=== PATIENT | female | born 1960 | race Caucasian/White ===

== ENCOUNTER → 2016-11-03 | Outpatient (CLI) | payer MEDICAID | LOC: FIMAGING 10:44 | DX: Z12.31 Encounter for screening mammogram for malignant neoplasm of breast (principal) | CPT/HCPCS: G0202 ==

== ENCOUNTER 2017-03-03 17:57 | Emergency (ER) | payer MEDICAID ==
[2017-03-03 18:12] VITALS: RESP 16
--- NOTE | 2017-03-03 19:48 | EDPHY ---
H & P Stated Complaint: Low back pain, has asked for narcotics. Time Seen by Provider: 03/03/17 19:35 - Personal History Current Tetanus/Diphtheria Vaccine: Unsure Current Tetanus Diphtheria and Acellular Pertussis (TDAP): Unsure Tetanus Vaccine Date: 2009 - Medical/Surgical History Hx Asthma: No Hx Chronic Respiratory Disease: No Hx Diabetes: No Hx Cardiac Disease: No Hx Renal Disease: No Hx Cirrhosis: No Hx Alcoholism: No Hx HIV/AIDS: No Hx Splenectomy or Spleen Trauma: No Other PMH: anxiety, depression, bipolar. Hx hypothyroid, ADHD, PTSD, borderline , chronic pain, colitis, ovarian cysts - Social History Smoking Status: Former smoker Constitutional: Initial Vital Signs Temperature (C) 37.0 C 03/03/17 18:10 Heart Rate 79 03/03/17 18:10 Respiratory Rate 16 03/03/17 18:10 Blood Pressure 113/75 03/03/17 18:10 O2 Sat (%) 99 03/03/17 18:10 O2 Delivery Mode Room Air Allergies/Adverse Reactions: No Known Allergies Allergy (Verified 03/03/17 18:12) Home Medications: Medication Instructions Recorded Aspirin [Aspirin 81mg (*)] 81 mg PO DAILY 03/14/14 Divalproex ER [Depakote ER 500 MG 1,000 mg PO HS #2 tab 03/18/14 (*)] Levothyroxine [Synthroid 112 mcg 112 mcg PO DAILY06 04/10/15 (*)] Lisdexamfetamine Dimesylate 40 mg PO DAILY@08 04/10/15 [Vyvanse] Lurasidone HCl [Latuda] 40 mg PO DAILY@0800 04/10/15 Zolpidem Tartrate [Ambien 5MG (*)] 10 mg PO HS PRN #30 tab 04/13/15 Seroquel 05/01/16 methylPREDNISolone [Medrol Dose 1 each PO AD #1 ea 03/03/17 Tristen] oxyCODONE IR [Oxycodone Ir (*)] 5 - 10 mg PO Q6 PRN #20 tab 03/03/17 Medical Decision Making - Diagnostics Imaging Results: Imaging Impressions Lumbar Spine MRI 03/03/17 19:47 Impression: Degenerative changes which are most pronounced again at the L4-L5 and L5-S1 levels where there are small annular tears and disk bulging, perhaps marginally progressive at the L5-S1 level (where there is a right paracentral prolapsing component), compared to the previous study of 10/07/10. Findings were discussed with Cuauhtemoc Stone MD at 23:06, on 03/03/2017. Imaging: Discussed imaging studies w/ machine scallop cutter Radiologist ED Course/Re-evaluation: CHIEF COMPLAINT: Low back pain with right and left radiculopathy HISTORY OF PRESENT ILLNESS: The patient is a 56 y/o female with a history of sciatica complaining of low back pain and bilateral radiculopathy onset around 14:00 today, about 5.5 hours ago. Her pain radiates into her left and right gluteal regions and is associated with some tingling in her left lower leg. She reports she has never had radiating pain before and feels like her numbness is worse. Her symptoms are aggravated by lying down and moving her leg. She denies incontinence, saddle anesthesia, or fever. REVIEW OF SYSTEMS: A 10 point review of systems was performed and is negative with the exception of the elements mentioned in the history of present illness. PHYSICAL EXAM: HR, BP, O2 Sat, RR. Temp noted General Appearance: Alert, well hydrated, appropriate, anxious and appears uncomfortable. Head: Atraumatic without scalp tenderness or obvious injury Eyes: Pupils equal, round, reactive to light and accommodation, EOMI, no trauma , no injection. Ears: Clear bilaterally, no perforation, normal landmarks Nose: Atraumatic, no rhinorrhea, clear. Throat: There is no erythema or exudates, no lesions, normal tonsils, mucus membranes moist. Neck: Supple, non-tender, no lymphadenopathy. Respiratory: No retractions, no distress, no wheezes, and no accessory muscle use. Lungs are clear to auscultation bilaterally. Cardiovascular: Regular rate and rhythm, no murmurs, rubs, or gallops. Bilateral dorsalis pedis pulses intact. Good capillary refill all extremities. Gastrointestinal: Abdomen is soft, non-tender, non-distended, no masses, no rebound, no guarding, no peritoneal signs. Musculoskeletal: Normal active ROM of all extremities, atraumatic. Neurological: Alert, appropriate, and interactive. Nonfocal neuro exam. Skin: No rashes, good turgor, no nodules on palpation. PAST MEDICAL HISTORY: Sciatica PAST SURGICAL HISTORY: no back surgeries SOCIAL HISTORY: son at bedside DIAGNOSTICS/PROCEDURES/CRITICAL CARE TIME: MRI Lumbar Spine: lumbar disc herniation DIFFERENTIAL DIAGNOSIS: The differential diagnosis for the patient's back pain and radiculopathy included but was not limited to musculoskeletal pain, epidural abscess, herniated disk, spinal fracture, and intra-abdominal causes including urinary system. MEDICAL DECISION MAKING: This is a 56 y/o female with a history of left-sided sciatica who presents with a 5.5-hour history of new bilateral gluteal pain and worsening left lower leg paresthesias. She has significant difficulty moving or lifting her legs due to pain on exam. She is neurovascularly intact. Plan for lumbar MRI and symptom management. IV established. 1mg IV Ativan, 1mg IV Dilaudid, 30mg IV Toradol, 4mg IV Zofran, and 1L IV NS administered for symptoms. Reassessed patient and discussed work up. She has lumbar disc herniations on MRI. She will be discharged with Medrol, OxyIR, and referral to neurosurgery for follow up. Standard return precautions given. She is comfortable with this plan. - Data Points Medications Given: Discontinued Medications Dexamethasone (Decadron Injection) 10 mg IVP EDNOW ONE Stop: 03/03/17 20:07 Last Admin: 03/03/17 20:11 Dose: 10 mg Hydromorphone HCl (Dilaudid) 1 mg IVP EDNOW ONE Stop: 03/03/17 20:06 Last Admin: 03/03/17 20:14 Dose: 1 mg Ketorolac Tromethamine (Toradol) 30 mg IVP EDNOW ONE Stop: 03/03/17 20:06 Last Admin: 03/03/17 20:13 Dose: 30 mg Departure - Departure Disposition: Home, Routine, Self-Care Clinical Impression: Lumbar radiculopathy Disc herniation Qualifiers: Spinal region: lumbar Qualified Code(s): M51.26 - Other intervertebral disc displacement, lumbar region Condition: Good Instructions: Lumbar Disc Herniation (ED), Lumbar Radiculopathy (ED) Additional Instructions: Use Medrol as prescribed. Take OxyIR as prescribed when needed for severe pain. Follow up with back specialist, Dr. Smith, in the next week. Return for weakness or numbness of your legs, incontinence, genital numbness, or other worsening of condition. Referrals: Norbert Gifford MD [Primary Care Provider] - As per Instructions Ahsan Smith MD [Medical Doctor] - As per Instructions Prescriptions: methylPREDNISolone [Medrol Dose Tristen] 1 each PO AD #1 ea oxyCODONE IR [Oxycodone Ir (*)] 5 - 10 mg PO Q6 PRN #20 tab PRN Reason: Pain, Severe Report Scribed for: Cuauhtemoc Stone Report Scribed by: Corinna Franks Date of Report: 03/03/17 Time of Report: 19:49
[2017-03-03] MEDS ORDERED: HYDROmorphONE/DILAUDID 1 MG/ML SYR IVP ONE (20:05)
[2017-03-03] MEDS ORDERED: KETOROLAC 30 MG/1 ML SDV IVP ONE (20:05)
[2017-03-03] MEDS ORDERED: DEXAMETHASONE 10 MG/ML VIAL IVP ONE (20:06)
[2017-03-03] MEDS ORDERED: HYDROCOD/APAP 5/325 PREPACK#6 BTL TAKEHOME ONE (23:08)
[2017-03-03 23:58] VITALS: BP 97/69; PULSE 60; TEMP 98.8; O2SAT 96
== END 2017-03-03 23:58 | disposition home or self-care (01) ==
DX: M51.16 Intervertebral disc disorders with radiculopathy, lumbar region (principal); Z79.82 Long term (current) use of aspirin; Z87.891 Personal history of nicotine dependence
CPT/HCPCS: 96374; J1100; J1170; J1885

== ENCOUNTER 2017-07-19 12:10 | Emergency (ER) | payer MEDICAID ==
--- NOTE | 2017-07-19 13:17 | EDPHY ---
HPI/HX/ROS/PE/MDM Narrative: CHIEF COMPLAINT: Ambien overdose. HISTORY OF PRESENT ILLNESS: This patient is a 57 year old female with history of bipolar disorder presenting with lethargy and dizziness following an intentional Ambien overdose. She states she took 3-4 pills of 10mg Ambien this morning around 11: 30am. She denies taking any other prescription medications, over the counter medications including acetaminophen, or alcohol. She endorses prior suicide attempts. She denies having a current therapist. Reviewed M1 paperwork completed by [place] police department. Police responded to a welfare check after the patient told her daughter she was going to intentionally overdose on Ambien. Police discovered the patient unresponsive this morning around 11:30 next to an empty bottle, with a note. EMS reports they discovered one empty bottle and one with about 10 pills missing. HPI difficult to obtain due to patient's mental status. REVIEW OF SYSTEMS: Aside from elements discussed in the HPI, a comprehensive 10-point review of systems was reviewed and is negative. PAST MEDICAL HISTORY: 1. Bipolar disorder (Depanastasia, Serofelice) SOCIAL HISTORY: Single. Lives in [place]. Former smoker. VITAL SIGNS: Reviewed by me GENERAL: Somnolent, barely arousable. HEENT: Atraumatic. Eyes: Bilateral rotary nystagmus at rest. No icterus, no injection. Mouth: moist mucous membranes. No erythema or lesions. Neck: supple with no adenopathy. LUNGS: Clear to auscultation bilaterally, no wheezes, rhonchi or rales. CARDIAC: Regular rate and rhythm, no rubs, murmurs or gallops. ABDOMEN: Soft, nontender, nondistended, bowel sounds normal. BACK: No CVA tenderness. EXTREMITIES: No trauma. No edema. Range of motion is normal throughout. NEURO: Alert and oriented, grossly nonfocal. SKIN: Warm and dry, no rash. PSYCHIATRIC: Normal mentation, no agitation. Portions of this note were transcribed by a medical center representative. I personally performed a history, physical exam, medical decision making, and confirmed accuracy of information the transcribed note. (Claribel Escalera) ED Course: 57 y/o female presents following an intentional Ambien overdose this morning prior to discovery at 11:30am. On my exam, she is somnolent and barely arousable with bilateral rotary nystagmus. 13:34 Consulted with poison control. 14:13 Consulted with poison control. Ambien half life is 3-4 hours. Plan for medical clearance in the emergency department rather than admission prior to psychiatric evaluation. 14:57 Reassessed patient. She is much more coherent. She remembers taking several Ambien pills this morning in addition to her Seroquel and Depakote. Plan for UA. Patient's care was assumed by Dr. Jeison Jc at 3:30 p.m.. We are awaiting urine tox screen and then evaluation by Mental Health. (Claribel Escalera) I took over care of this patient at 3:30 p.m.. This patient is on an M1 hold for overdose on Ambien. She is awaiting evaluation by Behavioral Health. 9:30 p.m., the patient is asking for some Ativan now. She is sober and appropriate for evaluation. I have been informed by Behavioral Health that she will be evaluated within the next 1-2 hours. 11:00 p.m., the patient is currently being evaluated by Behavioral Health. She again requested some Ativan secondary to her anxiety. She was given 1 mg orally. This was discussed with behavioral health. Patient's care turned over to Dr. Weller at this time. (Francisco Jc) 2300 care assumed by me from Dr. Jc pending mental health evaluation. 0630 patient has been seen by the mental health warp knit operator. Patient is hermila for safety. She is not currently a danger to herself. They have a plan for her to follow up as an outpatient. Will discharge her to the plan. ( Christophe Weller) - Data Points Laboratory Results: Laboratory Results 07/19/17 14:00 07/19/17 14:00 Medications Given: Discontinued Medications Divalproex Sodium (Depakote) 1,000 mg PO ONCE ONE Stop: 07/19/17 23:46 Last Admin: 07/20/17 00:22 Dose: 1,000 mg Sodium Chloride (Ns) 1,000 mls @ 0 mls/hr IV ONCE ONE; Wide Open PRN Reason: Protocol Stop: 07/19/17 13:30 Last Admin: 07/19/17 13:53 Dose: 1,000 mls Lorazepam (Ativan) 1 mg PO EDNOW ONE Stop: 07/19/17 22:37 Last Admin: 07/19/17 22:37 Dose: 1 mg Lurasidone HCl (Latuda) 40 mg PO ONCE ONE Stop: 07/19/17 23:46 Last Admin: 07/20/17 00:22 Dose: 40 mg Quetiapine Fumarate (Seroquel) 100 mg PO EDNOW ONE Stop: 07/19/17 23:39 Last Admin: 07/20/17 00:55 Dose: Not Given Quetiapine Fumarate (Seroquel) 100 mg PO EDNOW ONE Stop: 07/19/17 23:46 Last Admin: 07/20/17 00:22 Dose: 100 mg General Time Seen by Provider: 07/19/17 13:08 Initial Vital Signs: Initial Vital Signs Temperature (C) 36.4 C 07/19/17 12:23 Heart Rate 71 07/19/17 12:23 Respiratory Rate 17 07/19/17 12:23 Blood Pressure 117/84 H 07/19/17 12:23 O2 Sat (%) 98 07/19/17 12:23 O2 Delivery Mode Room Air Allergies/Adverse Reactions: No Known Allergies Allergy (Verified 07/19/17 12:22) Home Medications: Medication Instructions Recorded Aspirin [Aspirin 81mg (*)] 81 mg PO DAILY 03/14/14 Divalproex ER [Depakote ER 500 MG 1,000 mg PO HS #2 tab 03/18/14 (*)] Levothyroxine [Synthroid 112 mcg 112 mcg PO DAILY06 04/10/15 (*)] Lisdexamfetamine Dimesylate 40 mg PO DAILY@04/10/15 [Vyvanse] Lurasidone HCl [Latuda] 40 mg PO DAILY@0804/10/15 Zolpidem Tartrate [Ambien 5MG (*)] 10 mg PO HS PRN #30 tab 04/13/15 Seroquel 05/01/16 methylPREDNISolone [Medrol Dose 1 each PO AD #1 ea 03/03/17 Tristen] oxyCODONE IR [Oxycodone Ir (*)] 5 - 10 mg PO Q6 PRN #20 tab 03/03/17 Departure - Departure Disposition: [facility] IP Clinical Impression: Suicidal ideations Overdose Qualifiers: Encounter type: initial encounter Injury intent: intentional self-harm Qualified Code(s): T50.902A - Poisoning by unspecified drugs, medicaments and biological substances, intentional self-harm, initial encounter Condition: Good Instructions: Depression (ED) Additional Instructions: Follow up with your mental health provider later today. Return to the emergency depart for increasing thoughts of suicide, depression, hopelessness, hallucinations, or any other concerns. Referrals: Patient,NotPresent [Unknown] - As per Instructions Report Scribed for: Claribel Escalera Report Scribed by: Leilani Izaguirre Date of Report: 07/19/17 Time of Report: 14:15
[2017-07-19] MEDS ORDERED: NS 1,000 ML IV ONE (13:29)
[2017-07-19 13:57] VITALS: RESP 16
[2017-07-19 14:23] LABS: % IMMATURE GRANULYOCYTES 0.2 % (0.0-1.1); ABSOLUTE IMMATURE GRANULOCYTES 0.01 10^3/uL (0.00-0.10); ADD DIFF? NO; ADD MORPH? NO; ADD SCAN? NO; ATYPICAL LYMPHOCYTE FLAG 0 (0-99); FRAGMENT RBC FLAG 0 (0-99); HEMATOCRIT 44.2 % (38.0-47.0); HEMOGLOBIN 15.3 g/dL (12.6-16.3); LEFT SHIFT FLG 0 (0-99); LIPEMIA HEMOLYSIS FLAG 90 (0-99); MEAN CELL HEMOGLOBIN 33.1 pg (27.9-34.1); MEAN CELL HEMOGLOBIN CONCENTR. 34.6 g/dL (32.4-36.7); MEAN CELL VOLUME 95.7 fL (81.5-99.8); MEAN PLATELET VOLUME 10.5 fL (8.7-11.7); PLATELET CLUMPS FLAG 20 (0-99); PLATELET COUNT 184 10^3/uL (150-400); RED BLOOD CELL COUNT 4.62 10^6/uL (4.18-5.33); RED CELL DISTRIBUTION WIDTH 12.4 % (11.5-15.2)
[2017-07-19 14:33] LABS: ANION GAP 15 mEq/L (8-16); CALCIUM 9.2 mg/dL (8.5-10.4); CARBON DIOXIDE 19 mEq/l (22-31); CHLORIDE 109 mEq/L (97-110); CREATININE 0.7 mg/dL (0.6-1.0); ETHANOL SERUM < 10 mg/dL (0-10); GLOMERULAR FILTRATION RATE > 60; GLUCOSE 89 mg/dL (70-100); POTASSIUM 4.7 mEq/L (3.5-5.2); SALICYLATE < 1.0 mg/dL (2.0-20.0); SODIUM 143 mEq/L (134-144)
[2017-07-19] MEDS ORDERED: LORazepam 1 MG TAB PO ONE (22:36)
[2017-07-19] MEDS ORDERED: QUEtiapine FUMARATE 200 MG TAB PO ONE (23:38)
[2017-07-19] MEDS ORDERED: LURASIDONE HCL 40 MG TAB PO ONE (23:45)
[2017-07-19] MEDS ORDERED: QUEtiapine FUMARATE 100 MG TAB PO ONE (23:45)
[2017-07-19] MEDS ORDERED: DIVALPROEX NA 500 MG TAB PO ONE (23:45)
[2017-07-20 22:01] VITALS: BP 119/73; PULSE 71; TEMP 98.2; O2SAT 96
== END 2017-07-20 07:07 | disposition home or self-care (01) ==
LOC: EDUNIT#
DX: T50.902A Poisoning by unspecified drugs, medicaments and biological substances, intentional self-harm, initial encounter (principal)
CPT/HCPCS: 80305; G0480

== ENCOUNTER → 2017-12-23 | Outpatient (CLI) | payer MEDICAID | LOC: FIMAGING 10:01 | PROVIDERS: ATTEND Family Medicine | DX: Z12.31 Encounter for screening mammogram for malignant neoplasm of breast (principal) ==

== ENCOUNTER → 2018-07-05 | Emergency (ER) | payer MEDICAID ==
[~2018-07-05] MED LIST: HYDROmorphONE/DILAUDID 2 MG/ML INJ IVP ONE; IOPAMIDOL (ISOVUE-300) 100 ML BTL ONE; NS 1,000 ML IV ONE
--- NOTE | 2018-07-05 20:01 | EDPHY ---
H & P Time Seen by Provider: 07/05/18 19:51 HPI/ROS: CHIEF COMPLAINT: Severe abdominal pain HISTORY OF PRESENT ILLNESS: Started around 4:30 p.m. Today, brought in by EMS after having received oral Zofran and 10 mg IM morphine and transport from [place], no IV access. She says is located in her anterior abdomen rupture on both sides to the back. Severe in nature still, 03/17. Not associated with dysuria hematuria vomiting or diarrhea. No recent injury or trauma fever or chills. REVIEW OF SYSTEMS: Eye: no change in vision ENT: no sore throat Cardiac: no chest pain or syncope Pulmonary: no cough or SOB Abdomen: HPI Musculoskeletal: no back pain Skin: no rash Neuro: no headache Constitutional: no fever : no urinary symptoms A comprehensive 10 point review of systems is otherwise negative aside from elements mentioned in the history of present illness. PAST MEDICAL HISTORY: Includes bipolar disorder and PTSD. Ovarian cyst surgery Social history: Lives in [place] General Appearance: Alert and conversant, cooperative. Eyes: No scleral icterus. ENT, Mouth: Normal mucous membranes. Respiratory: Normal respiratory effort, breath sounds equal, lungs are clear to auscultation. Cardiovascular: Regular rate and rhythm. Gastrointestinal: Mild diffuse tenderness without rebound or guarding. Neurological: Alert, face symmetric, normal motor and sensory in extremities. Skin: Warm and dry, no rashes. Musculoskeletal: No peripheral edema. Psychiatric: Not agitated. Emergency Department course/MDM: Dilaudid 0.5 mg IV, i-STAT and CT scanning. Discussed and consented. 2038: Creat 0.7, CT ordered. CT per Dr. Rodriguez shows constipation but no other reason for abdominal pain seen. 2144: Results discussed with the patient. She is reading a book, in no distress. She states she is comfortable with discharge, encouraged to use laxatives. Smoking Status: Former smoker Constitutional: Initial Vital Signs Temperature (C) 36.5 C 07/05/18 20:04 Heart Rate 73 07/05/18 20:04 Respiratory Rate 20 07/05/18 20:04 Blood Pressure 111/91 H 07/05/18 20:04 O2 Sat (%) 100 07/05/18 20:04 O2 Delivery Mode Room Air Allergies/Adverse Reactions: No Known Allergies Allergy (Verified 07/05/18 20:04) Home Medications: Medication Instructions Recorded Aspirin [Aspirin 81mg (*)] 81 mg PO DAILY 03/14/14 Divalproex ER [Depakote ER 500 MG 1,000 mg PO HS #2 tab 03/18/14 (*)] Levothyroxine [Synthroid 112 mcg 112 mcg PO DAILY06 04/10/15 (*)] Lisdexamfetamine Dimesylate 40 mg PO DAILY@08 04/10/15 [Vyvanse] Lurasidone HCl [Latuda] 40 mg PO DAILY@0804/10/15 Zolpidem Tartrate [Ambien 5MG (*)] 10 mg PO HS PRN #30 tab 04/13/15 Seroquel 05/01/16 methylPREDNISolone [Medrol Dose 1 each PO AD #1 ea 03/03/17 Tristen] oxyCODONE IR [Oxycodone Ir (*)] 5 - 10 mg PO Q6 PRN #20 tab 03/03/17 Medical Decision Making - Diagnostics Imaging Results: Imaging Impressions Abdomen CT 07/05/18 20:39 Impression: 1. Constipation. 2. No CT evidence of appendicitis, volvulus, abscess, or bowel obstruction. Findings and recommendations discussed with Emergency Department physician, Tomas Bell M.D., at 2120 hours, on July 05, 2018. Final report concurs with initial preliminary interpretation. Imaging: Discussed imaging studies w/ banquet server on call Radiologist Differential Diagnosis: Differential considered including but not limited to volvulus, bowel obstruction , intestinal perforation, gastroenteritis, constipation - Data Points Laboratory Results: Laboratory Results 07/05/18 20:39 07/05/18 20:39 07/05/18 07/05/18 07/05/18 20:39 20:39 20:39 WBC 6.36 10^3/uL 10^3/uL (3.80-9.50) RBC 4.58 10^6/uL 10^6/uL (4.18-5.33) Hgb 15.3 g/dL g/dL (12.6-16.3) POC Hgb 15.3 gm/dL gm/dL (12.6-16.3) Hct 43.1 % % (38.0-47.0) POC Hct 45 % % (38-47) MCV 94.1 fL fL (81.5-99.8) MCH 33.4 pg pg (27.9-34.1) MCHC 35.5 g/dL g/dL (32.4-36.7) RDW 12.2 % % (11.5-15.2) Plt Count 185 10^3/uL 10^3/uL (150-400) MPV 10.7 fL fL (8.7-11.7) Neut % (Auto) 53.5 % % (39.3-74.2) Lymph % (Auto) 36.0 % % (15.0-45.0) [place] % (Auto) 9.3 % % (4.5-13.0) Eos % (Auto) 0.5 % L % (0.6-7.6) Baso % (Auto) 0.5 % % (0.3-1.7) Nucleat RBC Rel Count 0.0 % % (0.0-0.2) Absolute Neuts (auto) 3.41 10^3/uL 10^3/uL (1.70-6.50) Absolute Lymphs (auto) 2.29 10^3/uL 10^3/uL (1.00-3.00) Absolute Monos (auto) 0.59 10^3/uL 10^3/uL (0.30-0.80) Absolute Eos (auto) 0.03 10^3/uL 10^3/uL (0.03-0.40) Absolute Basos (auto) 0.03 10^3/uL 10^3/uL (0.02-0.10) Absolute Nucleated RBC 0.00 10^3/uL 10^3/uL (0-0.01) Immature Gran % 0.2 % % (0.0-1.1) Immature Gran # 0.01 10^3/uL 10^3/uL (0.00-0.10) POC Sodium 140 mEq/L mEq/L (135-145) Sodium 137 mEq/L mEq/L (135-145) POC Potassium 3.8 mEq/L mEq/L (3.3-5.0) Potassium 4.2 mEq/L mEq/L (3.3-5.0) POC Chloride 107 mEq/L mEq/L (97-110) Chloride 105 mEq/L mEq/L (97-110) Carbon Dioxide 19 mEq/l L mEq/l (22-31) Anion Gap 13 mEq/L mEq/L (6-14) POC BUN 25 mg/dL H mg/dL (7-23) BUN 23 mg/dL mg/dL (7-23) Creatinine 0.7 mg/dL mg/dL (0.6-1.0) POC Creatinine 0.7 mg/dL mg/dL (0.6-1.0) Estimated GFR > 60 Glucose 93 mg/dL mg/dL (70-100) POC Glucose 95 mg/dL mg/dL (70-100) Calcium 10.0 mg/dL mg/dL (8.5-10.4) Total Bilirubin 0.8 mg/dL mg/dL (0.1-1.4) Conjugated Bilirubin 0.2 mg/dL mg/dL (0.0-0.5) Unconjugated Bilirubin 0.6 mg/dL mg/dL (0.0-1.1) AST 30 IU/L IU/L (14-46) ALT 21 IU/L IU/L (9-52) Alkaline Phosphatase 64 IU/L IU/L (38-126) Total Protein 7.9 g/dL g/dL (6.3-8.2) Albumin 5.0 g/dL g/dL (3.5-5.0) Lipase 187 IU/L IU/L (23-300) Urine Color Urine Appearance Urine pH Ur Specific Adger Urine Protein Urine Ketones Urine Blood Urine Nitrate Urine Bilirubin Urine Urobilinogen Ur Leukocyte Esterase Urine Glucose 07/05/18 20:19 WBC RBC Hgb POC Hgb Hct POC Hct MCV MCH MCHC RDW Plt Count MPV Neut % (Auto) Lymph % (Auto) [place] % (Auto) Eos % (Auto) Baso % (Auto) Nucleat RBC Rel Count Absolute Neuts (auto) Absolute Lymphs (auto) Absolute Monos (auto) Absolute Eos (auto) Absolute Basos (auto) Absolute Nucleated RBC Immature Gran % Immature Gran # POC Sodium Sodium POC Potassium Potassium POC Chloride Chloride Carbon Dioxide Anion Gap POC BUN BUN Creatinine POC Creatinine Estimated GFR Glucose POC Glucose Calcium Total Bilirubin Conjugated Bilirubin Unconjugated Bilirubin AST ALT Alkaline Phosphatase Total Protein Albumin Lipase Urine Color YELLOW Urine Appearance CLEAR Urine pH 8.0 H (5.0-7.5) Ur Specific Adger 1.013 (1.002-1.030) Urine Protein NEGATIVE (NEGATIVE) Urine Ketones 1+ H (NEGATIVE) Urine Blood NEGATIVE (NEGATIVE) Urine Nitrate NEGATIVE (NEGATIVE) Urine Bilirubin NEGATIVE (NEGATIVE) Urine Urobilinogen NEGATIVE EU EU (0.2-1.0) Ur Leukocyte Esterase NEGATIVE (NEGATIVE) Urine Glucose NEGATIVE (NEGATIVE) Medications Given: Discontinued Medications Hydromorphone HCl (Dilaudid) 1 mg IVP EDNOW ONE Stop: 07/05/18 20:13 Last Admin: 07/05/18 20:35 Dose: 1 mg Sodium Chloride (Ns) 1,000 mls @ 0 mls/hr IV EDNOW ONE; Wide Open PRN Reason: Protocol Stop: 07/05/18 20:02 Last Admin: 07/05/18 20:33 Dose: 1,000 mls Point of Care Test Results: Chemistry 07/05/18 20:39 POC Sodium 140 mEq/L mEq/L (135-145) POC Potassium 3.8 mEq/L mEq/L (3.3-5.0) POC Chloride 107 mEq/L mEq/L (97-110) POC BUN 25 mg/dL H mg/dL (7-23) POC Creatinine 0.7 mg/dL mg/dL (0.6-1.0) POC Glucose 95 mg/dL mg/dL (70-100) ISTAT H&H 07/05/18 20:39 POC Hgb 15.3 gm/dL gm/dL (12.6-16.3) POC Hct 45 % % (38-47) Departure - Departure Disposition: Home, Routine, Self-Care Clinical Impression: Abdominal pain Qualifiers: Abdominal location: generalized Qualified Code(s): R10.84 - Generalized abdominal pain Constipation Qualifiers: Constipation type: unspecified constipation type Qualified Code(s): K59.00 - Constipation, unspecified Condition: Good Instructions: Constipation (ED), Acute Abdominal Pain (ED) Referrals: Patient,NotPresent [Unknown] - As per Instructions Norbert Gifford MD [Primary Care Provider] - As per Instructions
[2018-07-05 20:45] LABS: PLATELET COUNT 185 10^3/uL (150-400)
[2018-07-05 22:09] VITALS: BP 127/78
== END ==
LOC: EDUNIT#
DX: R10.84 Generalized abdominal pain (principal); K59.00 Constipation, unspecified; E86.9 Volume depletion, unspecified; F31.9 Bipolar disorder, unspecified; F43.10 Post-traumatic stress disorder, unspecified
CPT/HCPCS: 82435-PO; 82565-PO; 82947-PO; 84132-PO; 84295-PO; 84520-PO; 85014-PO; 96374; J1170; Q9967

== ENCOUNTER 2018-10-22 22:12 | Emergency (ER) | payer MEDICAID ==
--- NOTE | 2018-10-22 22:25 | EDPHY ---
H & P Stated Complaint: SI on M1 Source: Patient, EMS Exam Limitations: Intoxication - Personal History Tetanus Vaccine Date: 2009 - Medical/Surgical History Hx Asthma: No Hx Chronic Respiratory Disease: No Hx Diabetes: No Hx Cardiac Disease: No Hx Renal Disease: No Hx Cirrhosis: No Hx Alcoholism: No Hx HIV/AIDS: No Hx Splenectomy or Spleen Trauma: No Other PMH: anxiety, depression, bipolar. Hx hypothyroid, ADHD, PTSD, borderline , chronic pain, colitis, ovarian cysts - Social History Smoking Status: Former smoker Time Seen by Provider: 10/22/18 22:22 HPI/ROS: HPI The patient presents with suicidal ideation, brought in by paramedics from her home on an M1 hold. The patient reports that she had been drinking alcohol, approximately 8-10 drinks over the course of the afternoon into the evening. She then took Valium 5 mg possibly up to 14 tabs over several hours. Paramedics also noted that her pill counts reflected that she may have taken some of her other medications which include other benzodiazepines and zolpidem. The patient said she did this because she did not want to wake up or live anymore. She has had several prior similar presentations.. REVIEW OF SYSTEMS 10 systems were reviewed and negative with the exception of the elements mentioned in the history of present illness. PMHx: Major depression verses bipolar disorder on medication Soc Hx[place], history of alcohol and drug use PHYSICAL General Appearance: Tired appearing, no distress Eyes: Pupils equal and round no pallor or injection ENT, Mouth: Mucous membranes moist Respiratory: There are no retractions, lungs are clear to auscultation Cardiovascular: Regular rate and rhythm Gastrointestinal: Abdomen is soft and non-tender, no masses, bowel sounds normal Neurological: A&O, moves all extremities Skin: Warm and dry, no rashes Musculoskeletal: Neck is supple non tender Extremities: symmetrical, full range of motion Psychiatric: Patient is oriented X 3, there is no agitation (NathanaeliTrudi) Constitutional: Initial Vital Signs Temperature (C) 36.6 C 10/22/18 22:26 Heart Rate 67 10/22/18 22:26 Respiratory Rate 16 10/22/18 22:26 Blood Pressure 107/71 10/22/18 22:26 O2 Sat (%) 97 10/22/18 22:26 O2 Delivery Mode Room Air Allergies/Adverse Reactions: No Known Allergies Allergy (Verified 07/05/18 20:04) Home Medications: Medication Instructions Recorded Divalproex ER [Depakote ER 500 MG 1,000 mg PO HS #2 tab 03/18/14 (*)] Levothyroxine [Synthroid 112 mcg 112 mcg PO DAILY06 04/10/15 (*)] Atorvastatin Calcium [Lipitor 20 20 mg PO HS 10/23/18 mg (*)] Diazepam [Valium 5 MG (*)] 5 mg PO DAILY PRN 10/23/18 Lisdexamfetamine Dimesylate 20 mg PO DAILY 10/23/18 [Vyvanse] QUEtiapine FUMARATE [Seroquel 50 50 mg PO HS 10/23/18 mg (*)] Sertraline HCl [Zoloft 50mg (*)] 50 mg PO DAILY 10/23/18 Triamcinolone Acetonide [Nasacort] 2 sprays EACHNARE HS PRN 10/23/18 Zolpidem Tartrate [Ambien] 10 mg PO HS PRN 10/23/18 Medical Decision Making - Diagnostics EKG Interpretation: EKG: Complete interpretation has been separately recorded in the [facility] archive. Summary impression: Normal sinus rhythm (Trudi Fitch) Differential Diagnosis: 58-year-old female presents brought in by ambulance from her home on an M1 hold for suicidal ideation after drinking alcohol and taking possibly up to 70 mg of Valium over the last several hours because she "did not want to wake up". Apparently she has prior history of similar. Here she is sedate though answering questions and able to ambulate. She denies any complaints currently. Plan to monitor, maintain M1 hold, check basic labs, EKG. Patient's labs positive for benzodiazepines and elevated blood alcohol level. She was allowed to sleep for several hours. She is medically cleared. At 7:00 a.m., I anticipate the case will be signed out to the oncoming provider Dr. Stone. She is awaiting mental health evaluation. (Trudi Fitch) 0700: I assumed care of this patient from Dr. Del Rosario at shift change. (Cuauhtemoc Stone) Other Provider: care assumed at 2:38 p.m. From [facility] with plan for mental health evaluation, patient presented intoxicated with suicidal ideation. 1902: A mental health hold lifted by Dr. Guillermo Wilhelm, patient deemed clinically stable to be discharged with outpatient follow-up by psychiatric leadership recruiter. (Tomas Bell) - Data Points Laboratory Results: Laboratory Results 10/22/18 22:20 10/22/18 22:20 10/23/18 13:40 Valproic Acid 76.0 mcg/mL mcg/mL (50.0-150.0) Departure - Departure Disposition: Home, Routine, Self-Care Clinical Impression: Alcohol intoxication, Bipolar 1 disorder Condition: Good Instructions: Alcohol Intoxication (ED), Bipolar Disorder (ED) Referrals: Pritesh Christine MD [Non Staff Provider (MD)] - As per Instructions
[2018-10-22 22:33] LABS: PLATELET COUNT 182 10^3/uL (150-400)
[2018-10-23 19:14] VITALS: BP 124/80
--- NOTE | 2018-10-23 19:30 | ASMTTCLDSP ---
TLC Discharge Disposition Disposition: Answers: Discharge If Answers: Yes DISCHARGED: Patient/family given suicide hotline info & SAMHSA brochure? Disposition Notes: Notes: Pt will follow up with therapist tomorrow at 11:30. Pt is on the cancellation list with Ced Christine at [facility] and they will call if they can get her in sooner. Discharge Concerns/Recommendations: Notes: In consultation with on-call psychiatrist, Guillermo Wilhelm MD, pt does not appear to meet 27-65 criteria requiring psychiatric hospitalization as pt does not appear to be an imminent risk of harm to self/others/gravely disabled due to a mental illness condition. : Dr. Wilhelm provided telephone order read back vacating M1 hold at 18:45 hrs. Psychiatrist vacating M1 Guillermo Wilhelm MD Hold: Date and time M1 hold 10/23/2018 06:45 PM vacated (time format is hh:mm): Date Signed: 10/23/2018 07:30 PM Electronically Signed By:Suad Sawant
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
--- NOTE | 2018-10-23 22:10 | CPEKG ---
Test Reason : OPEN Blood Pressure : / mmHG Vent. Rate : 071 BPM Atrial Rate : 071 BPM P-R Int : 156 ms QRS Dur : 088 ms QT Int : 439 ms P-R-T Axes : 063 067 075 degrees QTc Int : 478 ms Sinus rhythm Confirmed by Tomas Bell ([id number]) on 10/23/2018 10:10:14 PM Referred By: Trudi Fitch Confirmed By:Tomas Bell
== END 2018-10-23 19:14 | disposition home or self-care (01) ==
LOC: EDBD → EDUNIT#
DX: R45.851 Suicidal ideations (principal); F10.129 Alcohol abuse with intoxication, unspecified; F31.9 Bipolar disorder, unspecified; Z79.899 Other long term (current) drug therapy
CPT/HCPCS: 80305; G0480

== ENCOUNTER → 2018-12-29 | Outpatient (CLI) | payer MEDICAID | LOC: FIMAGING 11:50 | PROVIDERS: ATTEND Family Medicine | DX: Z12.31 Encounter for screening mammogram for malignant neoplasm of breast (principal) ==